=== PATIENT | male | born 1985 | race Caucasian/White ===

== ENCOUNTER 2018-08-28 14:55 | Emergency (ER) | payer OTHER ==
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
[2018-08-28] MEDS ORDERED: Tetan/Diph/Pertus SYR(Tdap)* 0.5 ML SYR(BOOSTRIX) use SYR IM ONE (15:21)
[2018-08-28 15:27] VITALS: BP 146/87
[2018-08-28 18:29] LABS: Rapid HIV 1 Nonreactive (Nonreactive)
[2018-08-28 19:06] LABS: Hepatitis B Surface Antigen Negative (Negative)
[2018-08-28 19:23] LABS: Hepatitis B Surface Ab Immune (Immune)
[2018-08-28 19:24] LABS: Hepatitis C Antibody Negative (Negative)
== END 2018-08-28 15:45 | disposition home or self-care (01) ==
LOC: UCCORT 14:55
DX: S51.831A Puncture wound without foreign body of right forearm, initial encounter (principal); Y04.1XXA Assault by human bite, initial encounter; Y92.149 Unspecified place in prison as the place of occurrence of the external cause; Y99.0 Civilian activity done for income or pay; Z23 Encounter for immunization
CPT/HCPCS: 36415; 86703; 86706; 86803; 87340; 90471; 90715; 99201; G0463